=== PATIENT | female | born 1995 | race Caucasian/White ===

== ENCOUNTER 2020-07-26 10:42 | Emergency (ER) | payer BC, SELFPAY ==
--- NOTE | 2020-07-26 10:51 | ED.SKABFB ---
HPI - Skin/Abscess/Foreign Bdy General Chief complaint: Extremity Injury, Lower Stated complaint: Glass in Foot Time Seen by Provider: 07/26/20 11:00 Source: patient Mode of arrival: ambulatory Limitations: no limitations History of Present Illness HPI narrative: Previously well 24-year-old woman comes in today complaining of foreign body sensation on top of her right foot. Patient states that she dropped a beer bottle and a piece of glass bounced up and cut the top of her right foot. She states that hurts when she moves and has persistent bleeding. She denies any numbness or tingling. Had a tetanus shot within the last 5 years. complaint: laceration and foreign body Onset (ago): hour(s) (2) Tetanus up to date: yes Location: RLE Quality: sharp Pain Consistency: intermittent Relieving factors: immobilization Exacerbating factors: movement Context: none Treatments prior to arrival: bandages Related Data Home Medications Medication Instructions Recorded Confirmed No Home Medications 07/26/20 07/26/20 Allergies Allergy/AdvReac Type Severity Reaction Status Date / Time No Known Allergies Allergy Verified 07/26/20 11:31 Review of Systems Constitutional: Constitutional: Denies chills and Denies fever(s) Musculoskeletal: Musculoskeletal: Denies arthralgias and Denies joint swelling Integumentary/Breasts: Skin/Breast: Denies pruritus, Denies erythema and Denies rash Neurologic: Denies vertigo and Denies dizziness Hematologic/Lymphatic: Hematologic/Lymphatic: Denies easy bleeding and Denies easy bruising Allergic/Immunologic: Allergic/Immunologic: Denies lip swelling and Denies throat swelling [facility] Social History Social History (Updated 07/26/20 @ 11:31 by Stanislaw Haynes MD) Smoking status: Never smoker Alcohol intake: never Substance use: never Living arrangements: with family Exam Const: General: healthy appearing Other: Anxious HENMT: Face and sinus: normal facial exam Eyes: Conjunctivae: conjunctivae normal Pupils: Equal, round and reactive pupils present EOM: EOMs intact bilaterally Skin: General skin exam: normal color, no jaundice and no pallor Rashes: no rashes Other: 5 mm laceration on the dorsum of the left foot. Neuro: General: patient oriented x3, no focal motor deficits and CN's II-XI intact bilaterally Speech: normal speech Gait exam (Neuro): Normal gait present Extrem: General: normal to inspection and no clubbing, cyanosis or edema Psych: Appearance: grossly normal and well kempt Mental Status: mental status grossly normal Affect: Anxious affect present Attitude: cooperative Thought content: Yes Normal thought content present Procedures Foreign Body Removal Foreign Body #1: Foreign Body Removal Date: 07/26/20 Foreign Body Removal Time: 11:32 Site: right and foot Description of foreign body: other ( Glass?) Sedation/Analgesia: none Technique: manual removal and irrigation Confirmed by:: palpation Complications: none Post-procedure exam: awake, alert Neurovascular: normal distal pulse and normal capillary fill Foreign Body Removal Narrative: Wound was thoroughly explored with forceps and palpated. No foreign body was found. Wound was then irrigated with 20 cc of sterile normal saline under pressure through a 20 gauge Angiocath. Discharge Plan Discharge Clinical Impression: Laceration of dorsum of right foot Patient Disposition: Home, Self-Care Condition: Stable Instructions: Laceration Without Closure (ED) Additional Instructions: Keep your foot elevated. Tylenol or ibuprofen for discomfort. Follow up with her doctor in a few days for re-evaluation. Return or be evaluated by your doctor if you developed a redness at the wound site, red streaks going up your foot/leg, purulent drainage or new concerning symptoms. Prescriptions: No Action No Home Medicati
[2020-07-26 11:00] VITALS: BP 109/91; PULSE 107; RESP 20; TEMP 37; O2SAT 99
== END 2020-07-26 11:40 | disposition home or self-care (01) ==
PROVIDERS: Emergency Provider Emergency Medicine
DX: S91.311A Laceration without foreign body, right foot, initial encounter (principal); W25.XXXA Contact with sharp glass, initial encounter
CPT/HCPCS: 99282

== ENCOUNTER 2020-09-12 21:25 | Emergency (ER) | payer OTHER, SELFPAY ==
[2020-09-12 22:00] VITALS: BP 116/84; PULSE 113; RESP 20; TEMP 36.2; O2SAT 98
--- NOTE | 2020-09-12 22:12 | ED.LOWEXIN ---
HPI - Extremity Injury (Lower) General Chief Complaint: Extremity Injury, Lower Stated Complaint: foot injury Time Seen by Provider: 09/12/20 22:12 Source: patient and RN notes reviewed Mode of arrival: ambulatory Limitations: no limitations History of Present Illness HPI Narrative: Patient he is here because she thinks she has a piece of glass in her foot. She was here 1 month ago when it happened. She said they dug around inside looking for a foreign body at that time. They did not find one. She says that it hurts so bad she can't walk on it yet the nurse reports she walked from the lobby into the room without difficulty. She is asking for an x-ray of her foot to find the foreign body. She wants to have the foreign body taken out. complaint: foot injury Onset (ago): month(s) (1) Place: home Severity: severe Relieving factors: nothing Exacerbating factors: movement and palpation Other symptoms: none Related Data Home Medications Medication Instructions Recorded Confirmed No Home Medications 07/26/20 09/12/20 Allergies Allergy/AdvReac Type Severity Reaction Status Date / Time No Known Allergies Allergy Verified 07/26/20 11:31 Review of Systems Review of Systems: All systems reviewed & are unremarkable except as noted in HPI and below PMFSH Past Medical History Medical History (Updated 09/12/20 @ 22:30 by Doug Graff MD) Anxiety Surgical History Surgical History (Updated 09/12/20 @ 22:30 by Doug Graff MD) No pertinent past surgical history Social History Social History (Updated 09/12/20 @ 22:30 by Doug Graff MD) Smoking status: Current every day smoker Tobacco type: cigarettes Alcohol intake: never Substance use: never Exam Const: General: healthy appearing and no acute distress Nutritional Appearance: well nourished and thin Orientation/consciousness: patient oriented x3 Other: Female nurse in room during examination. HENMT: Head: normal to inspection Ears: external ears normal Eyes: Conjunctivae: conjunctivae normal Pupils: Equal, round and reactive pupils present EOM: EOMs intact bilaterally Neck: Neck: normal visual inspection Resp: Effort & Inspection: normal respiratory effort Auscultation: clear to auscultation bilaterally Cardio: Rate: regular rate Rhythm: regular rhythm GI: GI Palp: Yes Soft to palpation and No Tenderness to palpation present (GI) Auscultation: normal bowel sounds Back/Spine/Pelvis: Cervical Spine: cervical ROM normal Thoracic/Lumbar Spine: thoraco-lumbar ROM normal Neuro: General: patient oriented x3, moves all extremities and no focal motor deficits Speech: normal speech Gait exam (Neuro): Normal gait present (per nurse) Extrem: Left lower extremity: foot ( scar noted over midportion dorsal 1st metatarsal) Details: normal to inspection; no unusual warmth Other: I was able to lift the skin over the midportion of the dorsal 1st metatarsal. In the area of the scar possibly able to palpate a foreign body. This cause some tenderness when compressed. She also had a small bony prominence in the same area when firmly pressed cause some pain. Psych: Appearance: grossly normal and well kempt Mental Status: mental status grossly normal Affect: normal affect Attitude: cooperative Thought content: Yes Normal thought content present Course Course Emergency Course: I explained to the patient that x-ray will not show a piece of glass. I did not recommend cutting it open and digging around for the glass as it has already healed over. Patient continue ask about an x-ray and I continued to explain to her that last will not show up on plain films. I explained to her that it may take 6-12 weeks for bone pain to resolve. If there is a foreign body it should work itself out to the surface or may never. She states she is going to go to a larger hospital and see with they say. Discharge Plan Discharge Clinical Impression: Bone pa
--- NOTE | 2020-09-12 22:33 | PC.NURSE ---
RN in with dr alvarez for evaluation.
== END 2020-09-12 22:25 | disposition home or self-care (01) ==
PROVIDERS: Emergency Provider Emergency Medicine
DX: M89.8X7 Other specified disorders of bone, ankle and foot (principal)
CPT/HCPCS: 99282

== ENCOUNTER 2021-03-17 13:28 | Observation (INO) | payer SELFPAY ==
[2021-03-17 14:00] VITALS: BP 97/44; PULSE 93
[2021-03-17 14:07] VITALS: BMI 22.2
--- NOTE | 2021-03-17 14:07 | OBADM ---
This patient, Sandip Chris, admitted to the OB room 116 for observation. Patient/family oriented to hospital policies and general routines including ID bracelet, bed and alarms, visiting hours, pain management, procedures, bathroom and other care routines, personal items, smoking policy, room service/diet, and visiting hours. Patient/Family are encouraged to report perceived risks to care and to ask questions if they do not understand what they are told or what they should do.
[2021-03-17 14:50] VITALS: TEMP 37.3
--- NOTE | 2021-03-17 14:53 | PC.NURSE ---
Dr. Jarod Dumont returned page and informed of pt's arrival at 24 2/7 wks with c/o a 6 cm bright red blood on toilet paper this am around 1000 and none since. 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 Pt c/o back ache x's 3 weeks. FHT's 145-150 with 10 beat accels; not heide. No bleeding since arrival. UA was sent. Pt just told me she has to leave to pick her kids up from daycare in [place] by 3:40 pm at the latest. Pt requesting to go home. would like pt to have an U/S to check placenta and cervical length.
[2021-03-17 14:59] LABS: Add Urine Microscopic? YES; Appearance Urine Clear (Clear); Bilirubin Urine Negative (Negative); Blood Urine Negative (Negative); Color Urine Straw (Yellow); Glucose Urine UA Negative (Negative); Ketones Urine Negative (Negative); Leukocyte Esterase Ur Trace LEU/UL (Negative); Mucus Urine Rare /lpf; Nitrate Urine Negative (Negative); Protein Urine Negative (Negative); Specific Grav Ur 1.008 (1.001-1.035); Urobilinogen Urine Negative mg/dL (<2.0); WBC Urine 0-3 /hpf
--- NOTE | 2021-03-17 15:05 | PC.NURSE ---
Dr. Jarod Dumont informed that upon telling pt he had ordered an U/S, she states she can't stay for it. I had asked if her significant other could go bean picker machine operator the children from daycare and then come back for her when she is discharged, but she said he didn't have permission to bean picker machine operator her kids. Offered to give our fax number for her to send written permission for him to be able to bean picker machine operator her kids; she declined the offer. Asked pt what time her daycare closed today and she said 5 pm, but she had to pick her kids up earlier because she had to be someplace else after that. Told pt that if the MD didn't OK her discharge she would have to sign out against medical advice and that insurance companies sometimes don't want to pay for a visit if the pt leaves before official discharge. MD states she would leave against medical advice. MD not comfortable with just discharging pt without the U/S- will need to leave AMA.
--- NOTE | 2021-03-17 15:08 | PC.NURSE ---
Pt informed that if she has a return of vaginal bleeding she needs to go to the nearest hospital that has an OB unit. To return if she has any change in movement pattern, leakage of fluid, or more than 4 contractions in an hour. Pt states she will call the MD office Saturday am for a follow up appointment.
--- NOTE | 2021-03-17 16:44 | P.PNOB_ITS ---
OB - Triage/Final Diagnosis Visit Information Date of evaluation: 03/17/21 Reason for evaluation: other (spotting) Comments/Additional reasons for admission: I have assessed the risk for this patient, Sandip Chris, and determined that she would benefit from obse rvation care. 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
--- NOTE | 2021-03-22 07:43 | P.PNOB_ITS ---
OB - Triage/Final Diagnosis Visit Information Date of evaluation: 03/21/21 Reason for evaluation: threatened labor Comments/Additional reasons for admission: I have assessed the risk for this patient, Sandip Chris, and determined that she would benefit from obse rvation care. Evaluation Laboratory results: Laboratory Tests 03/17/21 14:46 Urine Color Straw Urine Appearance Clear Urine pH 6.0 Ur Specific [place] 1.008 Urine Protein Negative Urine Glucose (UA) Negative Urine Ketones Negative Ur Blood (Man) Negative Urine Nitrate Negative Urine Bilirubin Negative Urine Urobilinogen Negative Leukocyte Esterase Rfl Trace H Urine WBC 0-3 Urine Mucus Rare
== END 2021-03-17 15:09 | disposition left against medical advice (07) ==
PROVIDERS: Admitting Provider Obstetrics & Gynecology; Visit Provider Obstetrics & Gynecology
DX: O26.852 Spotting complicating pregnancy, second trimester (principal); Z3A.24 24 weeks gestation of pregnancy
CPT/HCPCS: 81001; G0378; G0379